=== PATIENT | female | born 2000 | race African-American/Black ===

== ENCOUNTER 2021-06-01 12:23 | Outpatient (CLI) | payer OTHER, SELFPAY ==
--- NOTE | 2021-06-02 13:46 | WPDPFTINT ---
PFT Procedure Performed PFT Procedure Performed Spirometry w/o Bronchodil PFT Interpretation Spirometry showed normal expiratory flow rates and a normal FEV1 to FVC ratio of 86%. No post bronchodilator study was carried out. The flow volume loop is also unremarkable. Impression: Spirometry within normal range.
--- NOTE | 2021-06-02 13:52 | WPDMETH ---
Methacholine Procedure Perform Procedure Performed Methacholine Challenge Methacholine Challenge Testing was performed with increasing doses of nebulized methacholine using a 2 minute tidal breathing protocol. Following the administration of nebulized methacholine with progressively increasing concentrations and after the 5th dose with concentration of 25 milligrams/mL, the measured FEV1 decreased from baseline by only 12%. Impression: Negative methacholine challenge testing.
== END 2021-06-01 12:24 | disposition home or self-care (01) ==
PROVIDERS: Visit Provider Nurse Practitioner
DX: J45.909 Unspecified asthma, uncomplicated (principal)
CPT/HCPCS: 94070; J7674